=== PATIENT | female | born 1980 | race Two or more races ===

== ENCOUNTER 2024-09-10 14:33 | Emergency (ER) | payer MEDICAID, SELFPAY ==
[2024-09-10 14:36] VITALS: BMI 24.2
[2024-09-10 14:58] VITALS: BP 106/72; PULSE 74; RESP 20; TEMP 36.9; O2SAT 98
--- NOTE | 2024-09-10 15:28 | PD.EDRME ---
Rapid Medical Screening Exam RME Arrival date/time: 09/10/24 14:33 44-year-old female presents emergency department complaints of pelvic pain Chief Complaint: Abdominal Pain Vital signs: Vital Signs Temperature 98.4 F 09/10/24 14:58 Pulse Rate 74 09/10/24 14:58 Respiratory Rate 20 09/10/24 14:58 Blood Pressure 106/72 09/10/24 14:58 Pulse Oximetry (%) 98 09/10/24 14:58 Oxygen Delivery Method Room Air 09/10/24 14:58
[2024-09-10 15:59] LABS: Collection Type, Urine Clean Catch
[2024-09-10 16:07] LABS: Basophils % (Auto) 0 % (0-2.5); Eosinophils % (Auto) 0 % (0-10); Hematocrit 41.2 % (36.0-46.0); Hemoglobin 13.3 g/dL (12.0-16.0); Immature Granulocytes % (Auto) 0 % (0-0); Immature Granulocytes Auto 0.01 Thou/mm3 (0.00-0.00); Lymphocytes # (Auto) 3.4 Thou/mm3 (1.0-4.8); Lymphocytes % (Auto) 28 % (10-50); Mean Corpuscular HGB Conc 32.3 g/dl (31.0-37.0); Mean Corpuscular Hemoglobin 25.9 pg (25.0-35.0); Mean Corpuscular Volume 80 fL (80-100); Monocytes # (Auto) 0.7 Thou/mm3 (0.0-0.8); Monocytes % (Auto) 6 % (0-12); Neutrophils # (Auto) 7.9 Thou/mm3 (1.8-7.7); Neutrophils % (Auto) 65 % (37-80); Nucleated Red Blood Cell % 0 /100 WBC (0); Platelet Count 223 Thou/mm3 (140-440); RDW Standard Deviation 39.7 fL (36.4-46.3); Red Blood Count 5.13 Miln/mm3 (4.00-5.20); White Blood Count 12.1 Thou/mm3 (3.6-11.0)
[2024-09-10 16:21] LABS: Bacteria,Urine Rare; Bilirubin,Urine Negative (Negative); Blood,Urine Negative (Negative); Clarity,Urine Turbid (Clear/Hazy); Color,Urine Yellow (Lt Yel-Yel); Culture Indicated,Urine Not Indicated; Glucose, Urine Negative (Negative); Ketones,Urine Negative (Negative); Leukocyte Esterase,Urine Negative (Negative); Nitrite,Urine Negative (Negative); PH,Urine 6.5 (5.0-7.0); Protein,Urine 1+ (Neg - Trace); RBC,Urine 7 /hpf (0-3); Specific Gravity,Urine 1.038 (1.001-1.035); Squamous Epithelial Cell,Urine 12 /hpf (0-5); WBC,Urine 3 /hpf (0-5)
[2024-09-10 16:23] LABS: HCG Qualitative,Urine Negative
[2024-09-10 16:24] LABS: Alanine Aminotransferase 13 U/L (10-49); Albumin, Serum 4.4 gm/dL (3.5-5.0); Albumin/Globulin Ratio 1.3 (1.2-2.2); Alkaline Phosphatase 55 U/L (46-116); Anion Gap 9 (7-16); Aspartate Amino Transferase 19 U/L (0-34); BUN/Creatinine Ratio 25 Ratio (12-20); Bilirubin,Total 0.4 mg/dL (0.3-1.2); Blood Urea Nitrogen 15 mg/dL (9-23); Calcium 9.3 mg/dL (8.3-10.6); Calcium (Corrected) 9.3 mg/dL (8.5-10.1); Chloride 106 mMol/L (98-107); Creatinine (Component) 0.6 mg/dL (0.6-1.3); Estimated Creatinine Clearance 105.5 mL/min (>60); Globulin 3.4 gm/dL (2.3-3.5); Glucose 95 mg/dL (74-106); Lipase 51 U/L (12-53); Osmolality,Calculated 280 (275-295); Potassium 4.2 mMol/L (3.4-5.1); Sodium 140 mMol/L (136-145); Total Protein 7.8 gm/dL (5.7-8.2); eGFR > 60 See Note
--- NOTE | 2024-09-10 16:47 | XR_ITS ---
Examination: Transvaginal ultrasound of the pelvis, complete Technique: Transvaginal sonographic images pelvis performed using fletcher scale imaging Exam date and time: September 10, 2024 1647 hours INDICATIONS: Onset pelvic pain today FINDINGS: Uterus 8.9 x 4.9 x 4.8 cm No uterine mass or intrauterine gestation. Endometrial stripe 1.3 cm. Right ovary 7.6 x 5.5 x 5.7 cm arterial flow Solid right ovarian mass 4.5 x 4.5 x 4.5 cm. Left ovary 1.4 x 3.1 x 2.2 cm arterial flow IMPRESSION: Solid right ovarian mass, differential would include ovarian tumor Recommend MRI pelvis follow-up, pre and postcontrast.
--- NOTE | 2024-09-10 17:20 | XR_ITS ---
Examination: CT abdomen with intravenous contrast CT pelvis with intravenous contrast 2-D coronal reconstructions 2-D sagittal reconstructions Date and time of exam:September 10, 2024 at 2155 hours INDICATIONS: Onset right lower abdominal pain beginning today. CTDI: vol (mGy) 6.97 DLP: (mGycm) 399 Technique: Multiple axial sections of the abdomen and pelvis have been obtained. 64 slice high-resolution scanner used. 3 mm axial sections have been obtained, post intravenous injection of 60 cc [id number]-[id number] 2-D sagittal, coronal reconstructions obtained. Low dose protocols were performed. One or more of the following dose reduction techniques were used; automated exposure control, adjustment of the mA and/or KV according to patient size, use of iterative reconstruction technique. Findings: 15 mm probable hemangioma posterior right lobe of the liver No intrahepatic biliary tract dilatation No gallstones Spleen not enlarged No pancreatic or adrenal mass No renal or ureteral calculi. No hydronephrosis Aorta normal size 17 mm fat-containing umbilical hernia Normal appendix No bowel obstruction No diverticulitis Thick-walled hypodense mass in the right pelvis contiguous with the uterus, 5.4 x 5 cm Urinary bladder is intact IMPRESSION: Recommend hepatic sonography to confirm small right lobe liver hemangioma No bowel obstruction Normal appendix Thick-walled hypodense mass in the right pelvis contiguous with the uterus 5.4 x 5.0 cm Please see the pelvic sonogram today, recommend MRI pelvis follow-up pre and postcontrast to confirm right ovarian tumor
[2024-09-11 00:07] VITALS: BP 117/66; PULSE 78; RESP 19; TEMP 36.9; O2SAT 100
--- NOTE | 2024-09-11 02:48 | PD.EDABDPN ---
ED Abdominal Pain RME/HPI General Chief Complaint: Abdominal Pain Stated complaint: RLQ X2 HRS Time seen by provider: 09/11/24 03:01 Arrival date/time: 09/10/24 14:33 Source: patient Mode of arrival: ambulatory Limitations: no limitations RME / HPI RME / HPI narrative: 09/10/24 14:33 44-year-old female presents emergency department complaints of pelvic pain Dr. Alba?s Main ED Evaluation: 44-year-old female presents to the Emergency Department (ED) with right pelvic pain. The pain began yesterday and has progressively worsened since onset. The patient is unable to specify the exact duration or intensity of the pain. She denies associated urinary symptoms, including dysuria, polyuria, or hematuria. Related Data Allergies Allergy/AdvReac Type Severity Reaction Status Date / Time ciprofloxacin (From Cipro) Allergy Verified 09/10/24 14:36 Quinolones Allergy Verified 09/10/24 14:36 Review of Systems Review of Systems Systems Reviewed: All systems reviewed, normal except as documented Past Medical History Past Medical History CARDIAC: Negative Cardiac Disorders or Congestive Heart Failure RESPIRATORY: Negative Chronic Obstructive Pulmonary Disease (COPD) or Asthma GENITOURINARY: Negative Renal Disease ENDOCRINE: Negative Diabetes Mellitus Type 1 or Diabetes Mellitus Type 2 Social History SMOKING STATUS: Never smoker ED Exam Narrative Physical exam: GENERAL: In general the patient is awake, interactive, in an emergency department gurney. HEAD/EYES/EARS/NOSE/THROAT: normo-cephalic, atraumatic, mucus membranes are moist. No cervical tenderness palpation midline. Supple neck. CARDIOVASCULAR: regular rate and regular rhythm, no murmurs, heart sounds are not distant, strong pulses in all four extremities that are equal and symmetric bilateral upper and lower extremities, normal capillary refill. CHEST/PULMONARY: normal chest rise and fall, good air movement, clear to auscultation bilaterally, normal inspiratory to expiratory ratios without evidence of respiratory distress. ABDOMEN: soft, not tender, no masses appreciated BACK: normal range of motion without pain. NEUROLOGICAL: cranio-facial features are symmetric, moves all four extremities equally without obvious limitations or weakness. EXTREMITY: no tenderness to palpation over the long bones or large joints of the bilateral upper and lower extremities, no joint swelling, no joint erythema, no signs of trauma, no unilateral leg swelling and no peripheral edema. SKIN: warm, dry, well-perfused, no jaundice, no rash, no telangiectasias or petechia. PSYCH: calm, cooperative, no evidence of psychosis or agitation General Limitations: Present no limitations Course Quality Measures none Orders Category Date Time Status CT Screening NOW Care 09/10/24 17:20 Active MRI Screening NOW Care 09/11/24 06:31 Active MRI Screening NOW Care 09/11/24 06:[address] abdomen pelvis w con Stat Exams 09/10/24 17:20 Completed MR pelvis wo con Stat Exams 09/11/24 Ordered US transvaginal Stat Exams 09/10/24 16:47 Completed CBC Stat Lab 09/10/24 15:52 Completed Comprehensive Metabolic Panel Stat Lab 09/10/24 15:52 Completed HCG Qualitative,Urine Stat Lab 09/10/24 15:41 Completed Lipase Stat Lab 09/10/24 15:52 Completed UA, C/S IF [Urinalysis, C/S if Indicated] Stat Lab 09/10/24 15:41 Completed Vital Signs Vital signs: Vital Signs Temperature 98.4 F 09/10/24 14:58 Pulse Rate 74 09/10/24 14:58 Respiratory Rate 20 09/10/24 14:58 Blood Pressure 106/72 09/10/24 14:58 Pulse Oximetry (%) 98 09/10/24 14:58 Oxygen Delivery Method Room Air 09/10/24 14:58 Abdominal Pain MDM MDM Narrative MDM Narrative:: 0600 [facility]. Past medical, surgical, social and family history reviewed. Vitals and home medications reviewed. Results and treatment plan discussed. They will assume the care of the patient at this time and will follow the patient, pending MRI and final disposition. Scribe Attestation: IDee Dee am scribing for and in the presence of Dr. Alba. Provider Notation: Although this document has been carefully reviewed, there may still be some phonetic and other typographical errors. These errors are purely grammatical due to imperfections in the software program and should not be construed in any way to compromise the substance of the patient's medical care during this visit. Patient data External records reviewed:: [facility] previous records Clinical information provided by:: patient Social determinants that could affect healthcare access:: none Patient has the following chronic illnesses:: see PMH How is presenting disease/condition affected by chronic disease/condition?: uneffected by Evaluation data The following diagnostics were reviewed and interpreted by me:: lab results and radiology exam(s) Lab and/or radiology exams considered but not ordered:: none Interpretation Summary: I personally reviewed the radiology data and agree with the radiologist's interpretation. Examination: Transvaginal ultrasound of the pelvis, complete Technique: Transvaginal sonographic images pelvis performed using fletcher scale imaging Exam date and time: September 10, 2024 1647 hours INDICATIONS: Onset pelvic pain today FINDINGS: Uterus 8.9 x 4.9 x 4.8 cm No uterine mass or intrauterine gestation. Endometrial stripe 1.3 cm. Right ovary 7.6 x 5.5 x 5.7 cm arterial flow Solid right ovarian mass 4.5 x 4.5 x 4.5 cm. Left ovary 1.4 x 3.1 x 2.2 cm arterial flow IMPRESSION: Solid right ovarian mass, differential would include ovarian tumor Recommend MRI pelvis follow-up, pre and postcontrast. Dictated By: Truman Vazquez MD Examination: CT abdomen with intravenous contrast CT pelvis with intravenous contrast Date and time of exam:September 10, 2024 at 2155 hours INDICATIONS: Onset right lower abdominal pain beginning today. Findings: 15 mm probable hemangioma posterior right lobe of the liver No intrahepatic biliary tract dilatation No gallstones Spleen not enlarged No pancreatic or adrenal mass No renal or ureteral calculi. No hydronephrosis Aorta normal size 17 mm fat-containing umbilical hernia Normal appendix No bowel obstruction No diverticulitis Thick-walled hypodense mass in the right pelvis contiguous with the uterus, 5.4 x 5 cm Urinary bladder is intact IMPRESSION: Recommend hepatic sonography to confirm small right lobe liver hemangioma No bowel obstruction Normal appendix Thick-walled hypodense mass in the right pelvis contiguous with the uterus 5.4 x 5.0 cm Please see the pelvic sonogram today, recommend MRI pelvis follow-up pre and postcontrast to confirm right ovarian tumor Dictated By: Truman Vazquez MD Medications / Prescriptions Medications or Prescriptions considered but not ordered:: none Medication administrations:: as above, if any Consultations Consultation(s) initiated? (list below): No Diagnosis Differential diagnosis abdominal pain: other (see narrative) Most likely diagnosis given after review of the tests above:: see clinical impression Admission Indicated Admission indicated?: not indicated Explain why admission is indicated or not indicated:: signout pending MRI Admission Request Was there a request for admission?: No Disposition Plan Disposition Plan: other (specify) (signout pending MRI) Critical Care Time Critical Care Time Critical Care Time: Yes Total Critical Care Time (min.): 35 Attestation: The high probability of sudden, clinically significant deterioration in the patient?s condition required the highest level of my preparedness to intervene urgently. ? The services I provided to this patient were to treat and/or prevent clinically significant deterioration. Services included the following: chart data review, reviewing nursing notes and/or old charts, documentation time, systems consultant collaboration regarding findings and treatment options, medication orders and management, direct patient care, vital sign assessments and ordering, interpreting and reviewing diagnostic studies and lab tests. ? Aggregate critical care time includes only time during which I was engaged in work directly related to the patient?s care, as described above, whether at bedside or elsewhere in the Emergency Department. It did not include time spent performing other reported procedures or the services of residents, students, nurses or physician assistants. Discharge Plan Prescriptions/Referrals Referrals: No Primary/Family,Physician [Primary Care Provider] - In 1 week Problem List Clinical Impression: Mass of right ovary, Abdominal pain, Ovarian cyst Patient/Caregiver Discharge Instructions Print Language: Kosovan
[2024-09-11 04:44] VITALS: BP 101/64; PULSE 87; RESP 18; TEMP 36.9; O2SAT 99
[2024-09-11 05:55] VITALS: BP 97/62; PULSE 67; RESP 16; TEMP 36.7; O2SAT 100
[2024-09-11 07:47] VITALS: BP 95/60; PULSE 68; RESP 15; TEMP 36.9; O2SAT 99
--- NOTE | 2024-09-11 08:29 | EDNOTE_ITS ---
Emergency Room Addendum Addendum Narrative: 0600: Care assumed from Dr. Alba, the previous shift emergency physician. Past medical, surgical, social and family history reviewed. Vitals and home medications reviewed. I will assume the care of the patient at this time, pending reassessment and final disposition. Please refer to the emergency department record for history and examination from initial visit.? Nursing notes reviewed by me. Vital signs reviewed by me. [facility] records reviewed by me. Patient came from [place] 8 days ago and plans to live here. States she is open and receptive to establishing care here. 0825: I spoke with OB Dr. Carranza, regarding today?s lab and radiology results. We also reviewed the pending MRI of the pelvis without contrast, which was ordered by the previous physician. Dr. Carranza advised that at this time, the M RI is not recommended. Given the presence of a solid mass, the next step would be to perform tumor marker testing. If the tumor markers are elevated, the patient would need to be referred to [facility]. I advised the patient to follow up with their PCP for tumor marker testing, and if the results are elevated, they should be referred to [facility] for further evaluation. At that point, a decision will be made regarding the necessity of the MRI.
== END 2024-09-11 09:10 | disposition home or self-care (01) ==
PROVIDERS: Nurse Practitioner Primary Care; Emergency Provider Emergency Medicine
DX: N83.201 Unspecified ovarian cyst, right side (principal)
CPT/HCPCS: 36415; 74177; 76830; 80053; 81001; 81025; 83690; 85025; 99285; A4649; Q9967